=== PATIENT | female | born 1995 | race Native Hawaiian/Other Pacific Islander ===

== ENCOUNTER 2021-01-27 17:38 | Emergency (ER) | payer OTHER, MEDICAID ==
[~2021-01-27] VITALS: Ht 180.3 cm; Wt 111.0 kg
[2021-01-27] MEDS ORDERED: KETOROLAC TROMETHAMINE 30 MG/ML VIAL IVP ONE (19:15)
[2021-01-27] MEDS ORDERED: MORPHINE SULFATE 4 MG/ML SYRINGE IVP ONE (19:15)
[2021-01-27] MEDS ORDERED: CYCLOBENZAPRINE HCL 10 MG TABLET PO ONE (19:15)
[2021-01-27 21:07] VITALS: BP 137/77
== END 2021-01-27 21:48 | disposition home or self-care (01) ==
LOC: EMS 17:42
DX: M54.32 Sciatica, left side (principal)
CPT/HCPCS: 73503; 96374; 96375; 99284; J1885; J2270